=== PATIENT | female | born 1995 | race Caucasian/White ===

== ENCOUNTER 2022-10-08 00:59 | Emergency (ER) | payer MEDICARE, SELFPAY ==
[2022-10-08 01:12] VITALS: BP 169/100; PULSE 81; RESP 16; TEMP 36.9; O2SAT 98; BMI 39.0
[2022-10-08] MEDS: LIDOCAINE 2% INJ SDV 5ML 5 ML (01:24)
[2022-10-08] MEDS: TET,DIPH,PERTUSS(ACELL),VAC/PF 0.5 ML SYRINGE IM (01:24)
--- NOTE | 2022-10-08 01:28 | ED_ITS ---
HPI - Wound/Laceration General Chief Complaint: Wound/Laceration Stated Complaint: Stab wound rt arm Time Seen by Provider: 10/08/22 01:10 Source: patient Mode of arrival: Ambulatory Limitations: no limitations History of Present Illness HPI narrative: Patient is a 27-year-old female. Has a history of generalized anxiety disorder and major depression. She currently does not see any mental health provider. Does not take any medications. Had a distant history of cutting secondary to anxiety. She states that today she had a ?bad day? she stated that she decided to do some cutting today in order to avoid a panic attack. On the cuts went deep. She states that this was an accident. She was not trying to kill herself. She knew that she went to deep with the cut so she came into the emergency department for further evaluation. Related Data Allergies Allergy/AdvReac Type Severity Reaction Status Date / Time No Known Drug Allergies Allergy Verified 10/08/22 01:12 Review of Systems Musculoskeletal Musculoskeletal: Reports system reviewed and no additional complaints, except as documented Integumentary/Breasts Skin/Breast: Reports system reviewed and no additional complaints, except as documented Neurologic Neurologic: Reports system reviewed and no additional complaints, except as documented Psychiatric Psychiatric: Reports system reviewed and no additional complaints, except as documented Patient History Medical History Anxiety Major depressive disorder Social History Smoking Status: Never smoker Smoking Status: Never smoker Substance Use Type: does not use Exam Initial Vital Signs Initial Vital Signs: Vital Signs Temperature 98.5 F 10/08/22 01:12 Pulse Rate 81 10/08/22 01:12 Respiratory Rate 16 10/08/22 01:12 Blood Pressure 169/100 H 10/08/22 01:12 Pulse Oximetry 98 10/08/22 01:12 Oxygen Delivery Method Room Air 10/08/22 01:12 HENNV Head: normal to inspection and normocephalic Cardio Pulses: radial pulses present on the right Skin Other: Multiple superficial lacerations going perpendicular to the long axis of the volar aspect of the right forearm. These are superficial. She has 1 cut that is approximately 5 cm long that has going parallel to the long axis. Is on the volar aspect ulnar side. There is some oozing from the area. Neuro Sensory Exam: no sensory deficits noted Extrem Other: No tendon injury noted. She can flex and extend at the wrist and also at the fingers of the right hand. Procedures Laceration Repair Laceration 1: Site: other (Forearm) Side (If applicable): right Size (cm): 5 Description: linear Depth: simple, single layer Local Anesthetic: lidocaine 2% Amount of anesthesia used (mL): 5 Pre-repair: wound explored, irrigated extensively and deep structures intact Skin layer closed with: nylon Skin layer suture size: 3-0 Number of sutures: 14 Technique: simple, interrupted Course Orders Ordered: Discontinued Medications Bacitracin (Bacitracin Oint 0.9 Gm Pckt) 2 applic TOP NOW ONE Stop: 10/08/22 01:45 Diphtheria/Tetanus/Acell Pertussis (Tet,Diph,Pertuss(Acell),Vac/Pf 0.5 Ml Syringe) 0.5 ml IM .ONCE ONE Stop: 10/08/22 01:12 Last Admin: 10/08/22 01:24 Dose: 0.5 ml Documented By: SHWETA Lidocaine/Epinephrine (Lidocaine 1% W/Epi) 1 ml SUBCUT NOW ONE Stop: 10/08/22 01:11 Vital Signs Vital signs: Vital Signs - 8 hr 10/08/22 01:12 Temperature 98.5 F Pulse Rate 81 Respiratory Rate 16 Blood Pressure 169/100 H Pulse Oximetry 98 Oxygen Delivery Method Room Air MDM - Wound/Laceration MDM Narrative Medical decision making narrative: Patient's tetanus was updated. The laceration was closed easily as described above. There were no tendon injury involvement. Patient states she is feeling better. She states she is not suicidal. Not homicidal. She is not clinically intoxicated. In my opinion has capacity to make decisions. Patient states she does not want admitted to the hospital. We did discuss the laceration and the care for this and need for return to have the stitches removed. We discussed things that we can offer her here for her anxiety/depression. Did discuss the importance of having a primary doctor. She was given information for the [facility] [employer] system she was given return precautions. She expressed understanding and agreement. She did contract for safety and stated that she would tell someone or return to the emergency department if she would thoughts of hurting herself. Discharge Plan Departure Patient Disposition: Home Clinical Impression: Deliberate self-cutting, Laceration Instructions: DI for Laceration Repair, DI for Anxiety -- Adult Activity Restrictions/Additional Instructions: The stitches that were placed today do need to be removed in 7-10 days. You can go to the walk-in clinic to have this done. Until then you can just cover the area with a antibiotic ointment and a bandage. You can shower like normal. It is important that you may contact with her primary doctor. It maybe several weeks/months before you can get into see someone but I recommend that you start that process now. You can contact [facility] with the pamphlet that you were given. Return to the emergency department for any new or worsening symptoms. Stand Alone Forms: Patient Portal/API
[2022-10-08] MEDS: BACITRACIN OINT 0.9 GM PCKT 2 APPLIC TOP (01:47)
== END 2022-10-08 01:56 | disposition home or self-care (01) ==
PROVIDERS: Emergency Provider Emergency Medicine
DX: S51.811A Laceration without foreign body of right forearm, initial encounter (principal); X78.1XXA Intentional self-harm by knife, initial encounter; Z23 Encounter for immunization
CPT/HCPCS: 12002; 90471; 99283; 90715